=== PATIENT | female | born 1985 | race Caucasian/White ===

== ENCOUNTER 2018-05-27 16:29 | Emergency (ER) | payer OTHER ==
[~2018-05-27] VITALS: Ht 167.6 cm; Wt 113.7 kg
[~2018-05-27 16:29] MED LIST: ADDERALL XR 3030 MG PO; ADDERALL20 MG PO; ALYACEN1 EACH PO; BENTYL10 MG PO; DOXYCYCLINE HY100 MG PO; FLINTSTONES1 EACH PO; FLINTSTONES1 TABLET PO; KEFLEX500 MG PO; KLONOPIN1 MG PO; LODINE400 MG PO; MOTRIN600 MG PO; Motrin PO; NAPROSYN500 MG PO; NEURONTIN100 MG PO; NOHOMEMEDS; NORCO 5/3251 TABLET PO; ONDANSETRON HCL8 MG; PERCOCET 5/31 TABLET PO; PREDNISONE10 MG PO; Percocet 5/325,Endoc PO; REMERON30 M2 PO; TRIAMTERENE-HC1 EACH PO; VICODIN 5-3001 EACH PO; VIIBRYD40 MG PO; XANAX1 MG PO; ZOFRAN ODT4 MG PO; ZOFRAN4 MG PO; Zoloft PO
[2018-05-27 19:54] VITALS: BP 115/87
== END 2018-05-27 19:54 | disposition home or self-care (01) ==
LOC: EME 16:29
DX: T40.5X1A Poisoning by cocaine, accidental (unintentional), initial encounter (principal); R51 Headache; M54.2 Cervicalgia; W18.39XA Other fall on same level, initial encounter
CPT/HCPCS: 70450; 72125